=== PATIENT | male | born 1965 ===

== ENCOUNTER 2025-06-23 13:43 | Emergency (ER) | payer SELFPAY ==
[2025-06-23 14:01] VITALS: BP 155/86; PULSE 93; RESP 16; TEMP 36.6; O2SAT 98; BMI 20.8
--- NOTE | 2025-06-23 14:08 | PC.NURSE ---
patient triage completed, patient ntoed to have abccess on right thigh, states he thinks it was from a spider. patient states it had been there for 6 weeks. patient triage finished and patient requested a doctors signature on a paper for his SSI. patient informed that he would have to follow up with pcp and patient informed this RN he was leaving. patient ambulated off unit with steady gait
--- NOTE | 2025-06-23 14:13 | ED_ITS ---
HPI - General Adult General Chief complaint: Skin/Abscess/Foreign Body Stated complaint: spider bite Time Seen by Provider: 06/23/25 14:34 Related Data Allergies Allergy/AdvReac Type Severity Reaction Status Date / Time No Known Allergies Allergy Verified 06/23/25 14:03 [facility] Social History Social History Do you have a plan to hurt others: No Plan Physical Exam ED Vital Signs: Vital Signs - 24 hr 06/23/25 14:01 Temperature 98 F Pulse Rate 93 Respiratory Rate 16 Blood Pressure 155/86 H Pulse Oximetry 98 Oxygen Delivery Method Room Air BMI result Body Mass Index 20.8 Course Course Course Narrative: Rapid medical examination performed in triage by Ruth Crockett PA-C. Patient is a 59 year old assigned male at presenting to the emergency department with a right upper leg spider bite. Patient states over the last 6 weeks he has had a spider bite to his right upper leg and is not sure how he got it. Patient states that he would like someone to fill out his disability paperwork. Detailed physical exam and review of systems are deferred to the primary therapist. Patient placed back in the waiting room pending room availability. Patient left the department without completing treatment. I was not able to visualize the area of concern while in triage but the patient's limited physical exam showed a non-toxic individual able to ambulate independently safely. Once patient was told that Emergency Department clinicians are not the appropriate individuals to fill out his disability paperwork, he decided he did not want to be evaluated for anything and would rather leave the department without completing treatment. Discharge Plan Discharge Clinical Impression: Insect bite Patient Disposition: Left W/O Completing Treatment
== END 2025-06-23 21:35 | disposition left against medical advice (07) ==
LOC: HO.ED 21:29
PROVIDERS: Emergency Provider Emergency Medicine
DX: T63.301A Toxic effect of unspecified spider venom, accidental (unintentional), initial encounter (principal); Y92.9 Unspecified place or not applicable
CPT/HCPCS: 99281